=== PATIENT | male | born 2000 | race Caucasian/White ===

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

== ENCOUNTER 2022-12-01 10:41 | Emergency (ER) | payer SELFPAY ==
[2022-12-01 10:56] VITALS: BP 117/69; PULSE 90; RESP 20; TEMP 98.7; BMI 18.3
[2022-12-01] MEDS ORDERED: ACETAMINOPHEN 325 MG TABLET (FP) PO ONE (11:11)
[2022-12-01] MEDS ORDERED: ACETAMINOPHEN 325 MG TABLET (FP) ONE (11:13)
== END 2022-12-01 13:15 | disposition home or self-care (01) ==
LOC: FER 10:41
DX: S30.0XXA Contusion of lower back and pelvis, initial encounter (principal); W22.8XXA Striking against or struck by other objects, initial encounter; Y93.83 Activity, rough housing and horseplay
CPT/HCPCS: 73502-TC-LT-FY; 99283-25